=== PATIENT | male | born 1965 | race African-American/Black ===

== ENCOUNTER 2018-09-13 13:03 | Emergency (ER) | payer OTHER ==
[2018-09-13 13:09] VITALS: BP 125/84; PULSE 108; TEMP 98.3; BMI 35.5
[2018-09-13] MEDS ORDERED: predniSONE 20 MG TABLET (UD) PO ONE (14:46)
--- NOTE | 2018-09-13 14:46 | PDOC ---
History of Present Illness - General Chief Complaint: Cold Symptoms Stated Complaint: COLD SYMPTOMS Time Seen by Provider: 09/13/18 14:17 History Source: Patient Exam Limitations: No Limitations - History of Present Illness Initial Comments: 09/13/18 14:46 Itching came for reevaluation for persistent cough body aches and chills. Patient states was diagnosed one week ago today with influenza A, prescribed Tamiflu in taken 5 day course. States symptoms have mildly improved but has persistent cough, sore throat pain, and some wheezing. Timing/Duration: reports: constant, getting worse, intermittent Severity: reports: mild, moderate Modifying Factors: improves with: activity, antibiotics, coughing Associated Symptoms: reports: cough, fever/chills, muscle aches Past History - Travel Traveled outside of the country in the last 30 days: No Close contact w/someone who was outside of country & ill: No - Past Medical History Allergies/Adverse Reactions: Allergies Allergy/AdvReac Type Severity Reaction Status Date / Time No Known Allergies Allergy Verified 09/02/16 10:24 Home Medications: Ambulatory Orders Amlodipine Besylate 10 mg PO DAILY 07/18/16 Valsartan/Hydrochlorothiazide [Valsartan-Hctz 320-25 mg Tab] 1 each PO DAILY Albuterol Sulfate Inhaler - [Ventolin HFA Inhaler -] 2 inh PO Q4H PRN #1 inhaler 09/04/16 EPINEPHrine (EPI-PEN 0.3MG) [Epipen 0.3MG -] 0.3 mg SQ ASDIR PRN #2 pens Albuterol Sulfate Inhaler - [Ventolin HFA Inhaler -] 1 - 2 inh PO Q4H #1 inhaler 09/13/18 Azithromycin [Zithromax -] 250 mg PO UTDICT #6 tab 09/13/18 Hctz - 37.5 mg PO DAILY 09/13/18 predniSONE [Deltasone -] 20 mg PO BID #8 tablet 09/13/18 Anemia: No Asthma: Yes Cancer: No Cardiac Disorders: No CVA: No COPD: No CHF: No Dementia: No Diabetes: No GI Disorders: No Disorders: No HTN: Yes Hypercholesterolemia: No Liver Disease: No Seizures: No Thyroid Disease: No - Surgical History Abdominal Surgery: No Appendectomy: No Cardiac Surgery: No Cholecystectomy: No Lung Surgery: No Neurologic Surgery: No Orthopedic Surgery: No - Immunization History Immunization Up to Date: Yes - Suicide/Smoking/Psychosocial Hx Smoking Status: Yes Smoking History: Current every day smoker Have you smoked in the past 12 months: Yes Number of Cigarettes Smoked Daily: 6 If you are a former smoker, when did you quit?: 2 YRS AGO Information on smoking cessation initiated: No Hx Alcohol Use: No Drug/Substance Use Hx: No Substance Use Type: None Hx Substance Use Treatment: No Review of Systems - Review of Systems Able to Perform ROS?: Yes Is the patient limited [place] proficient: Yes Constitutional: Yes: Symptoms Reported, See HPI, Fever, Malaise HEENTM: Yes: Symptoms Reported, See HPI, Nose Congestion Respiratory: Yes: Symptoms reported, See HPI, Cough, Wheezing ABD/GI: Yes: Symptoms Reported, See HPI, Nausea : No: Symptoms Reported Musculoskeletal: Yes: Symptoms Reported Integumentary: Yes: Symptoms Reported Neurological: Yes: Symptoms reported, See HPI, Headache (frontal ) All Other Systems: Reviewed and Negative *Physical Exam - Vital Signs Last Vital Signs Temp Pulse Resp BP Pulse Ox 98.3 F 108 H 18 125/84 95 09/13/18 13:06 09/13/18 13:06 09/13/18 13:06 09/13/18 13:06 09/13/18 13:06 - Physical Exam General Appearance: Yes: Nourished, Appropriately Dressed, Apparent Distress, Mild Distress HEENT: positive: SHARA, Normal ENT Inspection, TMs Normal, Pharynx Normal Neck: positive: Tender, Supple, Lymphadenopathy (R), Lymphadenopathy (L) Respiratory/Chest: positive: Lungs Clear, Decreased Breath Sounds, Rhonchi, Wheezing Cardiovascular: positive: Regular Rhythm Gastrointestinal/Abdominal: positive: Soft Musculoskeletal: positive: Normal Inspection Integumentary: positive: Normal Color, Dry, Warm, Pale Neurologic: positive: degreasing solution reclaimer II-XII NML intact, Fully Oriented, Alert, Normal Mood/ Affect, Normal Response, Motor Strength 5/5 Moderate Sedation - Procedure Monitoring Vital Signs: Procedure Monitoring Vital Signs Temperature 98.3 F 09/13/18 13:06 Pulse Rate 108 H 09/13/18 13:06 Respiratory Rate 18 09/13/18 13:06 Blood Pressure 125/84 09/13/18 13:06 O2 Sat by Pulse Oximetry (%) 95 09/13/18 13:06 Progress Note - Progress Note Progress Note: Bronchitis, will treat with Z-Isac and continue albuterol and prednisone for reactive airway status post influenza *DC/Admit/Observation/Transfer Diagnosis at time of Disposition: Bronchitis - Discharge Dispostion Disposition: HOME Condition at time of disposition: Stable Decision to Admit order: No - Prescriptions Prescriptions: Albuterol Sulfate Inhaler - [Ventolin HFA Inhaler -] 1 - 2 inh PO Q4H #1 inhaler Azithromycin [Zithromax -] 250 mg PO UTDICT #6 tab predniSONE [Deltasone -] 20 mg PO BID #8 tablet - Referrals Referrals: Kishore Landon MD [Primary Care Provider] - - Patient Instructions Printed Discharge Instructions: DI for Acute Bronchitis Additional Instructions: Rest, drink lots of fluids: Teas, water, soups, Pedialyte Saltwater gargles Steamy showers/seem to face break up mucus Avoid contact with others until fevers and cough resolved Lots of handwashing and good hygiene Continue [id number] medications for symptomatic relief Tylenol or Motrin for fever and pain Continue albuterol nebulizers every 4-6 hours for the next 2 days then as needed for continued cough Prednisone as directed until completed Azithromycin as directed Followup with private physician in one to 2 days Return to emergency department / pediatric hospital for worsened symptoms, fevers, dehydration - Post Discharge Activity Forms/Work/School Notes: Back to Work
[2018-09-13] MEDS ORDERED: predniSONE 20 MG TABLET (UD) ONE (14:48)
[2018-09-13] MEDS ORDERED: ALBUTEROL SO4 2.5/IPRATROPIUM 0.5 INH SOL 3 ML VIAL.NEB. NEB ONE (14:49)
[2018-09-13] MEDS: ALBUTEROL SO4 2.5/IPRATROPIUM 0.5 INH SOL 3 ML VIAL.NEB. NEB SCH ×2 (14:57→15:17)
== END 2018-09-13 16:19 | disposition home or self-care (01) ==
LOC: JERFT 13:03
PROC: 3E0F7GC Introduction of Other Therapeutic Substance into Respiratory Tract, Via Natural or Artificial Opening (ICD-10-PCS; principal; 2018-09-13)
DX: J40 Bronchitis, not specified as acute or chronic (principal); I10 Essential (primary) hypertension; J45.909 Unspecified asthma, uncomplicated
CPT/HCPCS: 71046-TC-FY; 99281-25

== ENCOUNTER 2020-10-24 06:06 | Inpatient (IN) | payer OTHER ==
[2020-10-18 12:08] VITALS: BMI 40.3
[2020-10-24] MEDS ORDERED: fentaNYL CITRATE 250 MCG/5 ML VIAL ONE (07:36)
[2020-10-24] MEDS ORDERED: SUCCINYLCHOLINE CHLORIDE 200 MG/10 ML SYRINGE ONE (07:37)
[2020-10-24] MEDS ORDERED: ROCURONIUM BROMIDE 50 MG/5 ML SYRINGE ONE (07:37)
[2020-10-24] MEDS ORDERED: MIDAZOLAM HCL 2 MG/2 ML SINGLE DOSE VIAL ONE ×2 (07:37→07:52)
[2020-10-24] MEDS ORDERED: PROPOFOL 20 ML ONE ×2 (07:37)
[2020-10-24] MEDS ORDERED: BUPIVACAINE HCL/PF 2.5 MG/ML - 30 ML VIAL IJ ONE (07:39)
[2020-10-24] MEDS ORDERED: LIDOCAINE HCL/PF 2% SDV 5ML VIAL ONE (07:40)
[2020-10-24] MEDS ORDERED: BUPIVACAINE LIPOSOME/PF (EXPAREL) 266 MG/20 ML VIAL ONE (07:52)
[2020-10-24] MEDS ORDERED: BUPIVACAINE HCL/PF 0.5% (5 MG/ML) 30 ML VIAL IJ ONE (07:52)
[2020-10-24] MEDS ORDERED: BUPIVACAINE HCL/PF 0.25% (2.5MG/ML) 10 ML VIAL IJ ONE ×2 (08:53→09:30)
[2020-10-24] MEDS ORDERED: DEXAMETHASONE SOD PHOSPHATE 4 MG/1 ML VIAL ONE (09:12)
[2020-10-24] MEDS ORDERED: ONDANSETRON 4 MG/2 ML VIAL ONE (09:12)
[2020-10-24] MEDS ORDERED: ceFAZolin SODIUM 1 GM VIAL ONE (09:12)
[2020-10-24] MEDS ORDERED: NEOSTIGMINE METHYLSULFATE 0.5 MG/1 ML - 10 ML MDV ONE (09:32)
[2020-10-24] MEDS ORDERED: FAMOTIDINE 20 MG/50 ML IVPB 20 MG/50 ML MG IVPB ONE (09:52)
[2020-10-24] MEDS ORDERED: METOCLOPRAMIDE HCL INJECTION 10 MG/2 ML VIAL ONE (09:52)
[2020-10-24] MEDS ORDERED: ONDANSETRON 4 MG/2 ML VIAL IVPUSH PRN ×2 (09:53→10:26)
[2020-10-24] MEDS ORDERED: HYDROmorphone HCL 0.5 MG/0.5 ML SYRINGE IVPB PRN (09:57)
[2020-10-24] MEDS: METOCLOPRAMIDE HCL INJECTION 10 MG/2 ML VIAL IVPUSH SCH ×3 (10:17→21:16)
[2020-10-24] MEDS ORDERED: FAMOTIDINE 20 MG PREMIXED IVPB IVPB ONE (10:20)
[2020-10-24] MEDS: ACETAMINOPHEN 1000 MG/100 ML VIAL (NON FORMULARY) IVPB ONE (10:35)
[2020-10-24 10:59] LABS: HEMATOCRIT 46.8 % (35.4-49); HEMOGLOBIN 15.4 GM/dl (11.7-16.9); MCH 27.9 pg (25.7-33.7); MCHC 32.9 g/dl (32.0-35.9); MEAN CELL VOLUME 84.9 fl (80-96); MEAN PLT VOLUME 7.7 fl (7.5-11.1); PLATELET COUNT 235 K/MM3 (134-434); RBC 5.52 M/mm3 (4.00-5.60); RDW 13.7 % (11.9-15.9); WHITE BLOOD COUNT 13.2 K/mm3 (4.0-10.8)
[2020-10-24 11:05] LABS: ALBUMIN 3.9 g/dl (3.4-5.0); BILIRUBIN,TOTAL 0.4 mg/dl (0.2-1); CALCIUM 9.1 mg/dl (8.5-10); CREATININE 1.7 mg/dl (0.55-1.3); POTASSIUM 4.3 mmol/L (3.5-5.1); TOT PROT 7.2 g/dl (6.4-8.2)
[2020-10-24] MEDS: SODIUM CHLORIDE 1,000 ML IV SCH (11:55)
[2020-10-24] MEDS: HYDROmorphone HCL/PF 1 MG/ML VIAL IVPB PRN ×2 (12:43→18:14)
[2020-10-24] MEDS: FAMOTIDINE 20 MG/50 ML IVPB 20 MG/50 ML MG IVPB SCH ×2 (12:44→21:15)
[2020-10-24 20:55] LABS: HEMATOCRIT 48.6 % (35.4-49); HEMOGLOBIN 15.8 GM/dl (11.7-16.9); MCH 27.5 pg (25.7-33.7); MCHC 32.5 g/dl (32.0-35.9); MEAN CELL VOLUME 84.6 fl (80-96); MEAN PLT VOLUME 7.7 fl (7.5-11.1); PLATELET COUNT 213 K/MM3 (134-434); RBC 5.74 M/mm3 (4.00-5.60); RDW 13.9 % (11.9-15.9); WHITE BLOOD COUNT 9.1 K/mm3 (4.0-10.8)
[2020-10-24 21:09] LABS: BILIRUBIN,TOTAL 0.3 mg/dl (0.2-1); CREATININE 1.3 mg/dl (0.55-1.3); TOT PROT 7.6 g/dl (6.4-8.2)
[2020-10-25] MEDS: METOCLOPRAMIDE HCL INJECTION 10 MG/2 ML VIAL IVPUSH SCH ×2 (04:51→09:22)
[2020-10-25] MEDS: HYDROmorphone HCL/PF 1 MG/ML VIAL IVPB PRN ×2 (04:51→09:58)
[2020-10-25 08:25] LABS: HEMATOCRIT 44.9 % (35.4-49); HEMOGLOBIN 15.1 GM/dl (11.7-16.9); MCHC 33.5 g/dl (32.0-35.9); MEAN CELL VOLUME 83.4 fl (80-96); MEAN PLT VOLUME 7.9 fl (7.5-11.1); PLATELET COUNT 210 K/MM3 (134-434); RBC 5.38 M/mm3 (4.00-5.60); RDW 13.6 % (11.9-15.9); WHITE BLOOD COUNT 9.7 K/mm3 (4.0-10.8)
[2020-10-25 08:38] LABS: ALBUMIN 3.7 g/dl (3.4-5.0); BILIRUBIN,TOTAL 0.6 mg/dl (0.2-1); CALCIUM 8.5 mg/dl (8.5-10); CREATININE 1.1 mg/dl (0.55-1.3); POTASSIUM 4.1 mmol/L (3.5-5.1)
[2020-10-25] MEDS: FAMOTIDINE 20 MG/50 ML IVPB 20 MG/50 ML MG IVPB SCH (09:23)
[2020-10-25] MEDS: ACETAMINOPHEN 1000 MG/100 ML VIAL (NON FORMULARY) IVPB ONE (09:28)
[2020-10-25] MEDS ORDERED: VALSARTAN 160 MG TABLET PO SCH (10:00)
[2020-10-25] MEDS ORDERED: amLODIPine BESYLATE 10 MG TABLET (FP) PO SCH (10:00)
[2020-10-25] MEDS: SODIUM CHLORIDE 1,000 ML IV SCH (11:20)
[2020-10-25] MEDS ORDERED: ACETAMINOPHEN 325 MG TABLET (FP) PO PRN (12:03)
[2020-10-25] MEDS ORDERED: SODIUM CHLORIDE 1,000 ML IV SCH (12:15)
[2020-10-25 14:33] VITALS: BP 147/88; PULSE 91; TEMP 98.9
== END 2020-10-25 15:09 | disposition home or self-care (01) | DRG 621 ==
LOC: FM/S 06:06
PROVIDERS: ADMIT Surgery; ATTEND Surgery
PROC: 0FB24ZX Excision of Left Lobe Liver, Percutaneous Endoscopic Approach, Diagnostic (ICD-10-PCS; 2020-10-24)
PROC: 0DB64Z3 Excision of Stomach, Percutaneous Endoscopic Approach, Vertical (ICD-10-PCS; principal; 2020-10-24 08:48)
DX: E66.01 Morbid (severe) obesity due to excess calories (principal); Z68.39 Body mass index [BMI] 39.0-39.9, adult; G47.33 Obstructive sleep apnea (adult) (pediatric); I10 Essential (primary) hypertension; R16.0 Hepatomegaly, not elsewhere classified
CPT/HCPCS: 36415; 74240-TC-FY; 80053; 85027; 86850; 86900; 86901; 94760; J0131